=== PATIENT | male | born 1980 | race Caucasian/White ===

== ENCOUNTER 2017-12-14 20:42 | Emergency (ER) | payer OTHER ==
[~2017-12-14 20:42] MED LIST: IPRATROPIUM 0.5MG/ALBUTEROL 2.5MG INH SOL UD 3ML (DUONEB)(J7620) As Ordered
[2017-12-14] MEDS: predniSONE 20 MG TAB PO (21:00)
[2017-12-14] MEDS: IPRATROPIUM 0.5MG/ALBUTEROL 2.5MG INH SOL UD 3ML (DUONEB)(J7620) NEB (21:00)
== END 2017-12-14 22:03 | disposition home or self-care (01) ==
LOC: M ED 20:42
DX: J44.1 Chronic obstructive pulmonary disease with (acute) exacerbation (principal); F17.210 Nicotine dependence, cigarettes, uncomplicated
CPT/HCPCS: 71046

== ENCOUNTER 2017-12-17 12:13 | Emergency (ER) | payer OTHER ==
[2017-12-17] MEDS: IPRATROPIUM 0.5MG/ALBUTEROL 2.5MG INH SOL UD 3ML (DUONEB)(J7620) NEB (12:50)
[2017-12-17] MEDS: MOXIFLOXACIN 400 MG TAB PO (13:31)
== END 2017-12-17 13:39 | disposition home or self-care (01) ==
LOC: M ED 12:13
DX: J40 Bronchitis, not specified as acute or chronic (principal); J44.1 Chronic obstructive pulmonary disease with (acute) exacerbation; Z79.899 Other long term (current) drug therapy; Z88.8 Allergy status to other drugs, medicaments and biological substances; F17.210 Nicotine dependence, cigarettes, uncomplicated
CPT/HCPCS: 71046

== ENCOUNTER → 2017-12-26 | Outpatient (CLI) | payer OTHER ==
[~2017-12-26] MED LIST changes: -IPRATROPIUM 0.5MG/ALBUTEROL 2.5MG INH SOL UD 3ML (DUONEB)(J7620) As Ordered; +ISOVUE-370 76% 100ML VIAL (Q9967) As Ordered
== END ==
LOC: M RAD 10:09
DX: J43.8 Other emphysema (principal)
CPT/HCPCS: Q9967

== ENCOUNTER → 2018-04-05 | Outpatient (CLI) | payer OTHER ==
[~2018-04-05] MED LIST changes: +/ADVA50050 INH; +ALBUTEROL INHALATION; +AVEL1TAB3 PO; +BACT800T; +FLEXERIL; -ISOVUE-370 76% 100ML VIAL (Q9967) As Ordered; +KEFL500C; +MUCI600T37 PO; +NAPR500T; +NAPROS500 PO; +PERC5TAB8; +PRED20TA PO; +SKELAXIN8 PO; +VENTAER INH
--- NOTE | 2018-04-05 14:19 | PFTRPT ---
Height: 69.00 Inches Weight: 135.00 Lbs BSA: 1.75 Diagnosis: J43.8 DATE OF PROCEDURE: 04/05/2018 ORDERED BY: Dr. Mathew Shore Spirometry: Excellent technical quality. Forced vital capacity normal. FEV1 in proportion. Obstructive index is, therefore, normal. Flow Volume Loop: Expiratory limb of the flow volume loop is normal. No bronchodilator response identified. Lung Volumes: Total lung capacity normal. Residual volume is borderline in proportion. Diffusing Capacity: Diffusing capacity significantly reduced and just does correct for alveolar volume. Hemoglobin: No hemoglobin available for correction. Airway Mechanics: Airway resistance and conductance are normal. IMPRESSION: Diffusing capacity impairment of unclear significance. Please correlate clinically. MTDD
== END ==
LOC: M CARPUL 10:08
PROVIDERS: ATTEND Student in an Organized Health Care Education/Training Program
DX: J43.8 Other emphysema (principal)

== ENCOUNTER 2019-11-15 09:22 | Emergency (ER) | payer MEDICAID, OTHER, SELFPAY ==
[~2019-11-15] VITALS: Ht 175.3 cm; Wt 61.4 kg
[~2019-11-15 09:22] MED LIST changes: -/ADVA50050 INH; +ADVA1AER2 INH
[2019-11-15] MEDS ORDERED: ONDANSETRON 4MG/2ML VIAL IV ONE (09:45)
[2019-11-15] MEDS ORDERED: ceFAZolin SOD 2 GM in IV 1 EA IV ONE (09:45)
[2019-11-15] MEDS ORDERED: BOOSTRIX/ADACEL VACCINE (DIPHTH/PERTUSS/ACELL/TETANUS) 0.5ML SYR IM ONE (09:45)
[2019-11-15] MEDS: MORPHINE 4 MG/ML 1ML VIAL/SYRINGE (J2270) IV PRN ×2 (09:46→10:08)
[2019-11-15] MEDS ORDERED: LIDOCAINE 2% W/EPINEPHRINE 20ML VIAL **PRES FREE INJ ONE (10:30)
--- NOTE | 2019-11-15 10:30 | REPVR ---
PROCEDURE INFORMATION: Exam: XR Left Forearm Exam date and time: 11/15/2019 10:14 AM Age: 39 years old Clinical indication: Injury or trauma; Other: Cut with saw; Wound; Arm, lower; Left TECHNIQUE: Imaging protocol: XR Left forearm. Views: 2 views. COMPARISON: No relevant prior studies available. FINDINGS: Bones/joints: No acute bony injury or malalignment. Soft tissues: Soft tissue swelling, with subcutaneous emphysema. IMPRESSION: Soft tissue swelling, with subcutaneous emphysema. Electronically signed by: Cesar Alvarado On 11/15/2019 10:30:35 AM
[2019-11-15] MEDS ORDERED: PERC5TAB12 PO (11:12)
[2019-11-15] MEDS ORDERED: KEFL500C17 PO (11:12)
[2019-11-15 12:09] VITALS: BP 138/92
== END 2019-11-15 12:25 | disposition home or self-care (01) ==
LOC: M ED 09:22
DX: S56.222A Laceration of other flexor muscle, fascia and tendon at forearm level, left arm, initial encounter (principal); F17.200 Nicotine dependence, unspecified, uncomplicated; W31.2XXA Contact with powered woodworking and forming machines, initial encounter; Y99.0 Civilian activity done for income or pay; Y92.9 Unspecified place or not applicable; Y93.9 Activity, unspecified; J44.9 Chronic obstructive pulmonary disease, unspecified; Z88.6 Allergy status to analgesic agent
CPT/HCPCS: 12002; 73090; 90471; 90715; 96365; 96375; 96376; 99283; J0690; J2270; J2405

== ENCOUNTER 2021-10-13 22:42 | Emergency (ER) | payer MEDICAID, OTHER ==
[~2021-10-13] VITALS: Ht 172.7 cm; Wt 60.8 kg
[~2021-10-13 22:42] MED LIST changes: +KEFL500C17 PO; +PERC5TAB12 PO
[2021-10-13] MEDS: MORPHINE 2 MG/ML 1ML VIAL IV PRN ×4 (22:56→23:23)
[2021-10-13] MEDS ORDERED: INFANRIX VACCINE SYRINGE (DIPHTH/TET/ACEL PERTUS PEDIATRIC) IM.IMMUN ONE (23:25)
[2021-10-13] MEDS ORDERED: LR 1,000 ML IV SCH (23:25)
[2021-10-13 23:30] LABS: BASO # 0.1 10^3/uL (0.0-0.2); BASO % 0.6 % (0.0-1.0); EOS # 0.2 10^3/uL (0.0-0.5); EOS % 1.7 % (0.0-3.0); HEMATOCRIT 43.4 % (42.0-52.0); HEMOGLOBIN 14.7 g/dl (13.5-17.5); LYMPH # 5.5 10^3/uL (1.5-5.0); MEAN CORPUSCULAR HEMOGLOBIN 30.2 pg (27.0-33.0); MEAN CORPUSCULAR HGB CONC 33.9 g/dl (32.0-36.5); MEAN CORPUSCULAR VOLUME 89.1 fl (80.0-96.0); MONO # 0.9 10^3/uL (0.0-0.8); MONO % 9.4 % (2.0-8.0); NEUTROPHILS # 3.2 10^3/uL (1.5-8.5); NEUTROPHILS % 32.1 % (36.0-66.0); PLATELET COUNT, AUTOMATED 266 10^3/uL (150-450); RED BLOOD COUNT 4.87 10^6/uL (4.30-6.10); WHITE BLOOD COUNT 9.9 10^3/uL (4.0-10.0)
[2021-10-13] MEDS ORDERED: BACITRACIN OINTMENT 30GM TUBE TOP ONE (23:30)
[2021-10-13] MEDS ORDERED: BOOSTRIX/ADACEL VACCINE (DIPHTH/PERTUSS/ACELL/TETANUS) 0.5ML SYR IM.IMMUN ONE (23:30)
[2021-10-13 23:41] LABS: PROTHROMBIN TIME 13.6 SECONDS (12.7-14.5)
[2021-10-13 23:42] LABS: PARTIAL THROMBOPLASTIN TIME 32.6 SECONDS (25.9-37.0)
[2021-10-13 23:56] VITALS: BP 163/84
[2021-10-14 00:15] LABS: CK-MB VALUE MASS 2.2 NG/ML (<3.6); MB/CK RELATIVE INDEX 0.82 (< OR =4)
[2021-10-14 00:23] LABS: ALBUMIN 4.2 GM/DL (3.2-5.2); ALT/SGPT 20 U/L (12-78); BILIRUBIN,TOTAL 0.5 MG/DL (0.2-1.0); BLOOD UREA NITROGEN 8 MG/DL (7-18); CALCIUM LEVEL 9.1 MG/DL (8.5-10.1); CARBON DIOXIDE LEVEL 22 MEQ/L (21-32); CHLORIDE LEVEL 108 MEQ/L (98-107); CREATININE FOR GFR 0.92 MG/DL (0.70-1.30); ETHYL ALCOHOL (ETHANOL) < 0.003 % (0.000-0.010); GLOMERULAR FILTRATION RATE > 60.0 (>60); GLUCOSE, FASTING 104 MG/DL (70-100); MAGNESIUM LEVEL 2.1 MG/DL (1.8-2.4); PHOSPHORUS LEVEL 3.3 MG/DL (2.5-4.9); POTASSIUM SERUM 4.3 MEQ/L (3.5-5.1); SODIUM LEVEL 137 MEQ/L (136-145); TOTAL PROTEIN 7.2 GM/DL (6.4-8.2)
== END 2021-10-13 23:57 | disposition short-term general hospital (02) ==
LOC: M ED 22:42
DX: T20.20XA Burn of second degree of head, face, and neck, unspecified site, initial encounter (principal); T22.211A Burn of second degree of right forearm, initial encounter; T22.212A Burn of second degree of left forearm, initial encounter; W35.XXXA Explosion and rupture of boiler, initial encounter; J70.5 Respiratory conditions due to smoke inhalation; F17.200 Nicotine dependence, unspecified, uncomplicated; F12.10 Cannabis abuse, uncomplicated; Y92.009 Unspecified place in unspecified non-institutional (private) residence as the place of occurrence of the external cause; Y93.89 Activity, other specified; Y99.9 Unspecified external cause status
CPT/HCPCS: 71045; 80053; 82077; 82375; 82550; 82553; 83605; 83735; 84100; 85025; 85610; 85730; 86140; 86850; 86900; 86901; 90471; 90715; 93041; 96365; 96375; 99291; J2270

== ENCOUNTER 2024-09-19 17:44 | Emergency (ER) | payer OTHER ==
[~2024-09-19] VITALS: Ht 175.3 cm; Wt 58.9 kg
[2024-09-19] MEDS ORDERED: VITA200032 (17:55)
[2024-09-19] MEDS ORDERED: BUPR-71 (17:55)
[2024-09-19] MEDS: ACETAMINOPHEN 325 MG TAB PO ONE (21:00)
[2024-09-19 22:38] VITALS: BP 137/88; TEMP 98.4; O2SAT 97
== END 2024-09-19 22:50 | disposition home or self-care (01) ==
LOC: M ED 17:44
DX: M25.531 Pain in right wrist (principal); J44.9 Chronic obstructive pulmonary disease, unspecified; F17.200 Nicotine dependence, unspecified, uncomplicated; Z88.6 Allergy status to analgesic agent; Z79.899 Other long term (current) drug therapy

== ENCOUNTER → 2024-10-04 | Outpatient (CLI) | payer OTHER ==
[~2024-10-04] MED LIST changes: +BUPR-71; +VITA200032
== END ==
LOC: M SOG 06:58
PROVIDERS: ATTEND Orthopaedic Surgery Hand Surgery
DX: M25.531 Pain in right wrist (principal)

== ENCOUNTER → 2024-12-19 | Outpatient (CLI) | payer OTHER | LOC: M RAD 16:01 | PROVIDERS: ATTEND Physician Assistant | DX: R07.89 Other chest pain (principal); M25.562 Pain in left knee; Z91.81 History of falling ==